=== PATIENT | female | born 1990 | race American Indian/Alaskan Native ===

== ENCOUNTER 2019-02-07 20:26 | Emergency (ER) | payer OTHER ==
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
[2019-02-07 21:17] VITALS: BP 131/86
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
[2019-02-07] MEDS ORDERED: TYLENOL ONE (22:29)
[2019-02-07] MEDS ORDERED: TYLENOL PO ONE (22:29)
[2019-02-07] MEDS ORDERED: FLEXERIL ONE (22:36)
[2019-02-08] MEDS ORDERED: IBUPROFEN PO ONE (00:33)
[2019-02-08] MEDS ORDERED: FLEXERIL PO ONE (00:34)
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
== END 2019-02-08 00:48 | disposition home or self-care (01) ==
LOC: ED 20:26
DX: S39.012A Strain of muscle, fascia and tendon of lower back, initial encounter (principal); M41.9 Scoliosis, unspecified; E66.01 Morbid (severe) obesity due to excess calories; Z68.43 Body mass index [BMI] 50.0-59.9, adult; V87.7XXA Person injured in collision between other specified motor vehicles (traffic), initial encounter; Y93.89 Activity, other specified; Y92.488 Other paved roadways as the place of occurrence of the external cause; Y99.8 Other external cause status
CPT/HCPCS: 72070; 72100; 99283